=== PATIENT | male | born 1965 | race Caucasian/White ===

== ENCOUNTER 2018-08-21 01:36 | Emergency (ER) | payer BC, OTHER ==
[~2018-08-21] VITALS: Ht 175.3 cm; Wt 69.9 kg
[~2018-08-21 01:36] MED LIST: CLOP75TA PO
--- OUTSIDE RECORDS SUMMARY | 2018-08-21 01:42 | XMS REPORT ---
Author Author DOSS SHAYY Organization [facility] Address [address] [place] [address] Care Team Providers Care Commissioner Of Officials Name Role Phone SHAYY DOSS Unavailable PROBLEMS Type Condition ICD9-CM Code PMM13-LF Code Onset Dates Condition Status SNOMED Code Problem Elevated blood pressure I10 Active 61621123 Problem Establishing care with new doctor, encounter for Z71.89 Active 491055980 Problem [place] spotted fever A77.0 Active 058209796 Assessment Elevated blood pressure I10 Jan, Active 87105688 ALLERGIES Substance Reaction Event Type Date Status Naprosyn Unknown Drug Allergy Jan, Active Morphine Sulfate intolerance Drug Allergy Jan, Active SOCIAL HISTORY No smoking Hx information available PLAN OF CARE VITAL SIGNS Height 69 in 2016-01-30 Weight 154.6 lbs 2016-01-30 Heart Rate 72 bpm 2016-01-30 Respiratory Rate 20 2016-01-30 BMI 22.83 kg/m2 2016-01-30 Blood pressure systolic 136 mmHg 2016-01-30 Blood pressure diastolic 94 mmHg 2016-01-30 MEDICATIONS Medication Instructions Dosage Frequency Start Date End Date Duration Status Doxycycline Hyclate 100 MG Orally every 12 hrs 1 tablet 12h Jan, Jan, Active RESULTS Name Result Date Reference Range TSH 2016-01-30 TSH 1.180 0.450-4.500 CBC 2016-01-30 WBC 10.0 3.4-10.8 RBC 4.86 4.14-5.80 Hemoglobin 15.3 12.6-17.7 Hematocrit 42.6 37.5-51.0 MCV 88 79-97 MCH 31.5 26.6-33.0 MCHC 35.9 31.5-35.7 RDW 13.8 12.3-15.4 Platelets 224 150-379 Neutrophils 63 Lymphs 25 Monocytes 9 Eos 3 Basos 0 Neutrophils (Absolute) 6.2 1.4-7.0 Lymphs (Absolute) 2.6 0.7-3.1 Monocytes(Absolute) 0.9 0.1-0.9 Eos (Absolute) 0.3 0.0-0.4 Baso (Absolute) 0.0 0.0-0.2 Immature Granulocytes 0 Immature Grans (Abs) 0.0 0.0-0.1 LIPID PANEL 2016-01-30 Cholesterol, Total 194 100-199 Triglycerides 163 0-149 HDL Cholesterol 37 >39 VLDL Cholesterol Vamshi 33 5-40 LDL Cholesterol Calc 124 0-99 CMP 2016-01-30 Glucose, Serum 95 65-99 BUN 8 6-24 Creatinine, Serum 1.04 0.76-1.27 eGFR If NonAfricn Am 82 >59 eGFR If Africn Am 95 >59 BUN/Creatinine Ratio 8 9-20 Sodium, Serum 142 134-144 Potassium, Serum 3.9 3.5-5.2 Chloride, Serum 99 97-108 Carbon Dioxide, Total 22 18-29 Calcium, Serum 9.3 8.7-10.2 Protein, Total, Serum 7.5 6.0-8.5 Albumin, Serum 4.6 3.5-5.5 Globulin, Total 2.9 1.5-4.5 A/G Ratio 1.6 1.1-2.5 Bilirubin, Total 0.4 0.0-1.2 Alkaline Phosphatase, S 75 39-117 AST (SGOT) 17 0-40 ALT (SGPT) 16 0-44 PROCEDURES Procedure Date Ordered Related Diagnosis Body Site COMPLETE CBC W/AUTO DIFF WBC Jan 30, 2016 COMPREHEN METABOLIC PANEL Jan 30, 2016 ASSAY THYROID STIM HORMONE Jan 30, 2016 LIPID PANEL Jan 30, 2016 VENIPUNCT, ROUTINE* Jan 30, 2016 Office Visit, Est Pt., Level 4 Jan 30, 2016 IMMUNIZATIONS No Known Immunizations
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
--- OUTSIDE RECORDS SUMMARY | 2018-08-21 01:42 | XMS REPORT ---
Author Author ISMAEL CAMACHO Organization [employer] Address Unknown Phone Unavailable Care Team Providers Care Internal Combustion Engine Assembler Name Role Phone ISMAEL CAMACHO CP Unavailable Allergies, Adverse Reactions, Alerts Substance Reaction Event Type Naprosyn Info Not Available Drug Allergy Morphine Sulfate intolerance Drug Allergy Problems Problem Type Condition Code Onset Dates Condition Status Problem Establishing care with new doctor, encounter for Z71.89 Active Problem [place] spotted fever A77.0 Active Problem Elevated blood pressure I10 Active Assessment Acute non-recurrent maxillary sinusitis J01.00 Active Medications Medication Code System Code Instructions Start Date End Date Status Dosage Augmentin [facility] [address]-44 875-125 MG Orally every 12 hrs Feb 28, 2016 Mar 09, 2016 1 tablet Procedures Procedure Coding System Code Date Office Visit, Est Pt., Level 3 CPT-4 32377 Feb 28, 2016 Vital Signs Date/Time: Feb 28, 2016 Cardiac Monitoring Heart Rate 86 bpm Weight 156.6 lbs Height 69 in BMI 23.12 Index Blood Pressure Diastolic 80 mmHg Blood Pressure Systolic 122 mmHg Results No Known Results Summary Purpose [employer] Submission
--- OUTSIDE RECORDS SUMMARY | 2018-08-21 01:43 | XMS REPORT ---
Author Author ISMAEL CAMACHO Organization [facility] Address [address] [place] [address] Care Team Providers Care Pharmacy Clinical Specialist Name Role Phone ISMAEL CAMACHO Unavailable PROBLEMS Type Condition ICD9-CM Code VNC83-IE Code Onset Dates Condition Status SNOMED Code Problem Elevated blood pressure I10 Active 32710102 Problem Establishing care with new doctor, encounter for Z71.89 Active 485706674 Problem [place] spotted fever A77.0 Active 247339742 Assessment Blood in stool K92.1 Jan, Active 590846082 ALLERGIES No Known Allergies SOCIAL HISTORY No smoking Hx information available PLAN OF CARE VITAL SIGNS MEDICATIONS No Known Medications RESULTS Name Result Date Reference Range HEMOCCULT (IN HOUSE) 2016-01-24 RESULTS NEGATIVE Control + Lot # [id number] Exp date 04/2017 HEMOCCULT (IN HOUSE)-Additional 2016-01-24 RESULTS NEGATIVE Control + Lot # [id number] Exp Date 04/2017 PROCEDURES Procedure Date Ordered Related Diagnosis Body Site TEST FOR BLOOD, FECES Jan 24, 2016 IMMUNIZATIONS No Known Immunizations
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
[2018-08-21] MEDS ORDERED: diphenhydrAMINE 50 MG/ML INJ (BENADRYL) IV STA (02:02)
[2018-08-21] MEDS ORDERED: methylPREDNISolone 125 MG (Solu-MEDROL) VIAL IV STA (02:02)
[2018-08-21] MEDS ORDERED: MONT10TA24 (02:04)
[2018-08-21] MEDS ORDERED: FAMOTIDINE 20MG/2ML IV (PEPCID) IVP ONE (02:15)
[2018-08-21 02:23] LABS: BASOPHILS % (AUTO) 0 % (0-10); EOSINOPHILS # (AUTO) 0.4 10^3/uL (0.0-0.3); EOSINOPHILS % (AUTO) 4 % (0-10); HEMATOCRIT 41 % (40-54); HEMOGLOBIN 14.5 G/DL (13.3-17.7); LYMPHOCYTES # (AUTO) 3.7 X 10^3 (1.0-4.0); LYMPHOCYTES % (AUTO) 37 % (12-44); MEAN CORPUSCULAR HEMOGLOBIN 31 PG (25-34); MEAN CORPUSCULAR HGB CONC 35 G/DL (32-36); MEAN CORPUSCULAR VOLUME 89 FL (80-99); MEAN PLATELET VOLUME 8.8 FL (7.4-10.4); MONOCYTES # (AUTO) 1.5 X 10^3 (0.0-1.0); MONOCYTES % (AUTO) 15 % (0-12); NEUTROPHILS # (AUTO) 4.3 X 10^3 (1.8-7.8); NEUTROPHILS % (AUTO) 44 % (42-75); PLATELET COUNT 255 10^3/uL (130-400); RED CELL DISTRIBUTION WIDTH 13.3 % (10.0-14.5); WHITE BLOOD COUNT 9.9 10^3/uL (4.3-11.0)
--- NOTE | 2018-08-21 02:23 | ED General ---
General Chief Complaint: Allergic Reaction Stated Complaint: RASH ALL OVER Nursing Triage Note: generalized hives/itching. denies soa. Nursing Sepsis Screen: No Definite Risk Source of Information: Patient Exam Limitations: No Limitations History of Present Illness Date Seen by Provider: Aug 21, 2018 Time Seen by Provider: 02:00 Initial Comments PT ARRIVES VIA POV FROM HOME C/O GENERALIZED HIVES---VERY ITCHY NO SWELLING ANYWHERE NO DIFFICULTY BREATHING OR WHEEZING. PT SMOKES 2 PPD AND HAS A CHRONIC COUGH AND IS ALWAYS A LITTLE SHORT OF BREATH AND WHEEZES, BUT NOT FORMALLY DX WITH COPD, AND BREATHING IS NO DIFFERENT THAN NORMAL. SYMPTOMS BEGAN APPROXIMATELY 30 MINUTES AFTER TAKING A SINGULAIR--TOOK IT AROUND MIDNIGHT WAS STARTED ON SINGULAIR ON 08/06/18 FOR ONGOING ISSUES WITH SINUSES/ALLERGIES. STATES HE MISSED HIS DOSE LAST NIGHT, SO HE TOOK A DOSE THIS AM AT 0600 AND THEN THE DOSE AROUND MIDNIGHT. STATES AFTER THE RASH STARTED HE TOOK A HOT SHOWER AND IT MADE IT WORSE HAS NOT TAKEN ANYTHING FOR SYMPTOMS NO OTHER NEW MEDICATIONS, FOODS, PRODUCTS OR EXPOSURES STATES IT IS THE ONLY MEDICATION HE HAS TAKEN TONIGHT--ALSO WAS GIVEN RX FOR TRAZODONE FOR SLEEP, BUT HAS NOT TAKEN ANY OR EVEN OPENED THE BOTTLE/PACKAGE HAS ONLY HAD HIVES ONE OTHER TIME AND WAS WHEN HE WAS TEENS/EARLY 20'S AND WAS DUE TO STRESS. PCP: DR. PIKE Allergies and Home Medications Allergies Coded Allergies: bupropion (Verified Allergy, Unknown, 08/21/18) "PERSONALITY CHANGE" naproxen (Verified Allergy, Unknown, 08/21/18) "SEVERE DROWSINESS" Home Medications Clopidogrel Bisulfate 75 Mg Tablet, 1 EACH PO DAILY FOR CIRCULATION Prescribed by: RASHI KING on 01/29/09 1526 Prednisone 20 Mg Tab, 40 MG PO DAILY Prescribed by: RASHI KING on 08/21/18 0229 Patient Home Medication List Home Medication List Reviewed: Yes Review of Systems Review of Systems Constitutional: no symptoms reported EENTM: see HPI, nose congestion Respiratory: see HPI Cardiovascular: no symptoms reported Gastrointestinal: no symptoms reported Genitourinary: no symptoms reported Musculoskeletal: no symptoms reported Skin: see HPI, pruritus, rash Psychiatric/Neurological: No Symptoms Reported Hematologic/Lymphatic: No Symptoms Reported Immunological/Allergic: see HPI Past Chuvbhz-Dhiayh-Svxbbu Hx Patient Social History Alcohol Use: Denies Use Recreational Drug Use: No Smoking Status: Current Everyday Smoker (2 PPD) Type Used: Cigarettes (2 PPD) 2nd Hand Smoke Exposure: Yes Recent Foreign Travel: No Contact w/Someone Who Travel: No Recent Infectious Disease Expo: No Recent Hopitalizations: No Seasonal Allergies Seasonal Allergies: No Past Medical History Surgeries: Yes (RIGH THAND X 3--TENDON INJURY) Orthopedic Respiratory: Yes (SELF-DX OF COPD) COPD Cardiac: No Neurological: No Genitourinary: No Gastrointestinal: No Musculoskeletal: No Endocrine: No HEENT: No Cancer: No Psychosocial: No Integumentary: No Blood Disorders: No (RMSF X 2 ) Physical Exam Vital Signs Vital Signs - First Documented 08/21/18 01:57 Temp 97.7 Pulse 84 Resp 18 B/P (MAP) 121/93 (102) Pulse Ox 94 O2 Delivery Room Air Capillary Refill : Less Than 3 Seconds Height, Weight, BMI Height: 5'9.00" Weight: 154lbs. oz. 69.992728da; BMI Method:Stated General Appearance: No Apparent Distress, WD/WN, Other (REEKS OF CIGARETTES ) HEENT: PERRL/EOMI, Pharynx Normal, Moist Mucous Membranes, Other (NO SWELLING TO LIPS, TONGUE OR INTRA-ORALLY) Neck: Full Range of Motion, Normal Inspection, Non Tender, Supple Respiratory: Normal Breath Sounds, No Accessory Muscle Use, No Respiratory Distress Cardiovascular: Regular Rate, Rhythm, No Edema, No Murmur Gastrointestinal: Soft Extremity: Normal Capillary Refill, No Pedal Edema Neurologic/Psychiatric: Alert, Oriented x3, No Motor/Sensory Deficits, Normal Mood/Affect, manager neonatal II-XII Norm as Tested Skin: Normal Color, Warm/Dry Progress/Results/Core Measures Suspected Sepsis Recent Fever Within 48 Hours: No Infection Criteria Present: None New/Unexplained Altered Menta: No Sepsis Screen: No Definite Risk SIRS Temperature:97.7 Pulse: 84 Respiratory Rate: 18 Laboratory Tests 08/21/18 02:10: White Blood Count 9.9 Blood Pressure 121 /93 Mean: 102 Laboratory Tests 08/21/18 02:10: Creatinine 1.21, Platelet Count 255 Results/Orders Lab Results Laboratory Tests Test 08/21/18 02:10 Range/Units White Blood Count 9.9 4.3-11.0 10^3/uL Red Blood Count 4.64 4.35-5.85 10^6/uL Hemoglobin 14.5 13.3-17.7 G/DL Hematocrit 41 40-54 % Mean Corpuscular Volume 89 80-99 FL Mean Corpuscular Hemoglobin 31 25-34 PG Mean Corpuscular Hemoglobin Concent 35 32-36 G/DL Red Cell Distribution Width 13.3 10.0-14.5 % Platelet Count 255 130-400 10^3/uL Mean Platelet Volume 8.8 7.4-10.4 FL Neutrophils (%) (Auto) 44 42-75 % Lymphocytes (%) (Auto) 37 12-44 % Monocytes (%) (Auto) 15 H 0-12 % Eosinophils (%) (Auto) 4 0-10 % Basophils (%) (Auto) 0 0-10 % Neutrophils # (Auto) 4.3 1.8-7.8 X 10^3 Lymphocytes # (Auto) 3.7 1.0-4.0 X 10^3 Monocytes # (Auto) 1.5 H 0.0-1.0 X 10^3 Eosinophils # (Auto) 0.4 H 0.0-0.3 10^3/uL Basophils # (Auto) 0.0 0.0-0.1 10^3/uL Sodium Level 141 135-145 MMOL/L Potassium Level 3.8 3.6-5.0 MMOL/L Chloride Level 104 98-107 MMOL/L Carbon Dioxide Level 25 21-32 MMOL/L Anion Gap 12 5-14 MMOL/L Blood Urea Nitrogen 12 7-18 MG/DL Creatinine 1.21 0.60-1.30 MG/DL Estimat Glomerular Filtration Rate > 60 BUN/Creatinine Ratio 10 Glucose Level 91 70-105 MG/DL Calcium Level 9.6 8.5-10.1 MG/DL My Orders Orders - FERNANDO,RASHI K DO Saline Lock/Iv-Start (08/21/18 02:02) Basic Metabolic Panel (08/21/18 02:02) Cbc With Automated Diff (08/21/18 02:02) Diphenhydramine Injection (Benadryl Inje (08/21/18 02:02) Methylprednisolone Sod Succ (Solu-Medrol (08/21/18 02:02) Famotidine Injection (Pepcid Injection) (08/21/18 02:15) Medications Given in ED Current Medications Medications Dose Ordered Sig/German Route Start Time Stop Time Status Last Admin Dose Admin Famotidine 40 mg ONCE ONCE IVP 08/21/18 02:15 08/21/18 02:16 DC 08/21/18 02:13 40 MG Vital Signs/I&O 08/21/18 08/21/18 01:57 03:00 Temp 97.7 97.2 Pulse 84 72 Resp 18 16 B/P (MAP) 121/93 (102) 116/85 (95) Pulse Ox 94 95 O2 Delivery Room Air Room Air Capillary Refill : Less Than 3 Seconds Blood Pressure Mean: 102 Progress Note : Progress Note GIVEN IV BENADRYL, SOLU-MEDROL, PEPCID WITH RESOLUTION OF RASH AND ITCHING. Departure Impression Primary Impression: Urticaria Additional Impression: POSSIBLE ALLERGIC REACTION TO SINGULAIR Disposition: HOME, SELF-CARE Condition: Improved Departure-Patient Inst. Referrals: INDIRA PIKE MD (PCP/Family) Primary Care Physician Patient Instructions: Hives, Drug Allergy Add. Discharge Instructions: LOTS OF FLUIDS BENADRYL 50 MG EVERY 4 HOURS NEEDED FOR RASH AND ITCHING STOP SINGULAIR FOLLOW UP WITH YOUR DR ON THURSDAY FOR FURTHER CARE RETURN TO ER IF WORSE All discharge instructions reviewed with patient and/or family. Voiced understanding. Scripts Prednisone (Prednisone) 20 Mg Tab 40 MG PO DAILY, #6 TAB Prov: RASHI KING DO 08/21/18 RASHI KING DO Aug 21, 2018 02:23
[2018-08-21] MEDS ORDERED: PRD20T PO (02:29)
[2018-08-21 02:43] LABS: BUN/CREATININE RATIO 10; CALCIUM 9.6 MG/DL (8.5-10.1); CARBON DIOXIDE 25 MMOL/L (21-32); CHLORIDE 104 MMOL/L (98-107); CREATININE SERUM 1.21 MG/DL (0.60-1.30); GFR ESTIMATED > 60; GLUCOSE 91 MG/DL (70-105); POTASSIUM 3.8 MMOL/L (3.6-5.0); SODIUM 141 MMOL/L (135-145)
[2018-08-21 03:00] VITALS: BP 116/85
== END 2018-08-21 03:01 | disposition home or self-care (01) ==
LOC: EDUNIT# 01:36 → ER 01:39
DX: L50.9 Urticaria, unspecified (principal); J44.9 Chronic obstructive pulmonary disease, unspecified; F17.210 Nicotine dependence, cigarettes, uncomplicated; Z88.8 Allergy status to other drugs, medicaments and biological substances; Z79.52 Long term (current) use of systemic steroids; Z79.02 Long term (current) use of antithrombotics/antiplatelets
CPT/HCPCS: 36415; 80048; 85025; 96374; 96375

== ENCOUNTER 2019-01-14 16:50 | Emergency (ER) | payer BC ==
[~2019-01-14] VITALS: Ht 175.3 cm; Wt 70.3 kg
[~2019-01-14 16:50] MED LIST changes: +MONT10TA24; +PRD20T PO
--- NOTE | 2019-01-14 17:18 | ED Upper Extremity ---
General Chief Complaint: Upper Extremity Stated Complaint: L WRIST PAIN Nursing Triage Note: Patient ambulatory with spouse to FT2 with complaint of left wrist pain after a fall this morning around 10:00 AM. Patient states he was able to use the left arm after falling but the pain has increased this evening. 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 Nursing Sepsis Screen: No Definite Risk Source: patient Exam Limitations: no limitations History of Present Illness Date Seen by Provider: Jan 14, 2019 Time Seen by Provider: 17:16 Initial Comments To ER with reports of left wrist pain after a fall onto an outstretched arm this morning at 10 AM. He then put a brace on his wrist and proceeded to weedeat for about an hour before he noticed pain.. Has worsening pain now. Onset: just prior to arrival Severity: moderate Pain/Injury Location: left wrist Method of Injury: fell Modifying Factors: Worse With Movement Allergies and Home Medications Allergies Coded Allergies: bupropion (Verified Allergy, Unknown, 08/21/18) "PERSONALITY CHANGE" naproxen (Verified Allergy, Unknown, 08/21/18) "SEVERE DROWSINESS" Home Medications Clopidogrel Bisulfate 75 Mg Tablet, 1 EACH PO DAILY FOR CIRCULATION Prescribed by: RASHI KING on 01/29/09 1526 Prednisone 20 Mg Tab, 40 MG PO DAILY Prescribed by: RASHI KING on 08/21/18 0229 Patient Home Medication List Home Medication List Reviewed: Yes Review of Systems Constitutional: see HPI EENTM: see HPI Respiratory: no symptoms reported Cardiovascular: no symptoms reported Genitourinary: no symptoms reported Musculoskeletal: see HPI Skin: no symptoms reported Psychiatric/Neurological: No Symptoms Reported Past Bxfbwqv-Qrsvhf-Tqtmxa Hx Patient Social History Alcohol Use: Denies Use Recreational Drug Use: No Smoking Status: Current Everyday Smoker Type Used: Cigarettes 2nd Hand Smoke Exposure: Yes Recent Foreign Travel: No Contact w/Someone Who Travel: No Recent Infectious Disease Expo: No Recent Hopitalizations: No Physical Abuse: No Sexual Abuse: No Mistreated: No Fear: No Seasonal Allergies Seasonal Allergies: No Past Medical History Surgeries: Yes (RIGH HAND X 3--TENDON INJURY) Orthopedic Respiratory: Yes (SELF-DX OF COPD) COPD Cardiac: No Neurological: No Genitourinary: No Gastrointestinal: No Musculoskeletal: No Endocrine: No HEENT: No Cancer: No Psychosocial: No Integumentary: No Blood Disorders: No (RMSF X 2 ) Physical Exam Vital Signs Vital Signs - First Documented 01/14/19 17:00 Temp 97.8 Pulse 74 Resp 18 B/P (MAP) 133/94 (107) Pulse Ox 96 O2 Delivery Room Air Capillary Refill : Less Than 3 Seconds Height, Weight, BMI Height: 5'9.00" Weight: 155lbs. oz. 70.588229vd; BMI Method:Stated General Appearance: WD/WN, no apparent distress Respiratory: no respiratory distress, no accessory muscle use Gastrointestinal: normal bowel sounds, non tender Shoulder: normal inspection, non-tender Elbow/Forearm: normal inspection, non-tender, Left Wrist: Yes normal inspection, Yes limited ROM (he is wearing and appropriately fitting thumb spica from home), Yes pain, Yes soft tissue tenderness, Yes swelling Hand: normal inspection, non-tender Neurologic/Psychiatric: alert, normal mood/affect, oriented x 3 Skin: normal color, warm/dry He has no numbness of the fingertips, normal capillary refill. Progress/Results/Core Measures Results/Orders My Orders Orders - WILBUR FRANCO APRN Wrist, Left, 3 Views Or More (01/14/19 17:06) Vital Signs/I&O 01/14/19 17:00 Temp 97.8 Pulse 74 Resp 18 B/P (MAP) 133/94 (107) Pulse Ox 96 O2 Delivery Room Air Blood Pressure Mean: 107 Departure Communication (Admissions) Patient has a wrist splint, states that he doesn't fit well so I offered 1 hours. We tried this multiple different ways and he states that it feels even worse. There is some swelling to the wrist. Advised him there is no fracture, if persistent pain after week he should have a repeat x-ray or MRI. In the meantime he could use ibuprofen for pain. He replies "no, Im not taking that". He has Difficulty believing that there is no fracture Impression Primary Impression: Wrist sprain Qualified Codes: S63.502A - Unspecified sprain of left wrist, initial encou nter Disposition: 01 HOME, SELF-CARE Condition: Stable Departure-Patient Inst. Decision time for Depature: 17:53 Referrals: INDIRA PIKE MD (PCP/Family) Primary Care Physician Patient Instructions: Wrist Sprain (DC) Add. Discharge Instructions: 1. Go home and elevate the wrist as much as possible, wear the wrist splint at all times except when showering for the next week. If you have persistent pain. Follow-up with primary care to discuss obtaining an MRI to evaluate for an small fracture not seen on x-ray or ligamentous injury. Ibuprofen and Tylenol for pain control in the meantime. All discharge instructions reviewed with patient and/or family. Voiced understanding. WILBUR FRANCO APRN Jan 14, 2019 17:18
--- NOTE | 2019-01-14 17:35 | Diagnostic Imaging Report ---
INDICATION: Fall, left wrist pain. FINDINGS: Three views of the left wrist show no fracture, dislocation, or other abnormality. IMPRESSION: Normal left wrist. Dictated by: Dictated on workstation # [id number]
[2019-01-14 18:03] VITALS: BP 133/94
== END 2019-01-14 18:04 | disposition home or self-care (01) ==
LOC: EDUNIT# 16:50 → ER 16:51
DX: S63.502A Unspecified sprain of left wrist, initial encounter (principal); J44.9 Chronic obstructive pulmonary disease, unspecified; F17.210 Nicotine dependence, cigarettes, uncomplicated; Z88.8 Allergy status to other drugs, medicaments and biological substances; Z88.6 Allergy status to analgesic agent; Z79.52 Long term (current) use of systemic steroids; W19.XXXA Unspecified fall, initial encounter
CPT/HCPCS: 73110

== ENCOUNTER → 2019-01-31 | Outpatient (CLI) | payer BC ==
--- NOTE | 2019-01-31 12:47 | Diagnostic Imaging Report ---
INDICATION: Fall with continued left wrist pain. TIME OF EXAM: 11:29 AM FINDINGS: Three views left wrist were obtained. Distal radius and ulna are intact. There is a calcific density noted along the dorsum of the carpus on the lateral view, suggestive of a triquetral fracture. Remaining carpal bones are intact without evidence of fracture. Metacarpals are unremarkable. IMPRESSION: Findings suggestive of triquetral fracture. Dictated by: Dictated on workstation # [id number]
== END ==
LOC: RAD 11:10
PROVIDERS: ATTEND Pediatrics
DX: M25.532 Pain in left wrist (principal); W19.XXXA Unspecified fall, initial encounter
CPT/HCPCS: 73110

== ENCOUNTER → 2021-04-10 | Outpatient (CLI) | payer BC, OTHER ==
[~2021-04-10] MED LIST changes: +MONT-40; -MONT10TA24
[2021-04-10 14:21] VITALS: BP 134/91
--- NOTE | 2021-04-10 14:59 | Cardiology Stress Test Report ---
Stress Test Report Date of Procedure/Referring: Date of Procedure: Apr 10, 2021 PCP Bridget Wallace DO Admitting Physician Donal Dickerson MD Indications: CP Baseline Heart Rate: 79 Baseline Blood Pressure: Blood Pressure Systolic: 134 Blood Pressure Diastolic: 91 Baseline EKG: Baseline EKG: NSR Summary/Conclusion: Summary: In summary, the patient started exercising with a baseline heart rate, blood pressure and EKG mentioned above Patient was able to exercise for a total of 5 minutes on Rasheed protocol, METs 7 Maximum heart rate 129 Maximum blood pressure 190/92 Stress EKG, [address] depression in lead II, III and aVF, V4, V5. Recovery EKG , Return to baseline Conclusion: 1. Fair exercise tolerance for a total of 5 minutes on standard Rasheed protocol, seven METS achieving only 79% of maximal expected heart rate. Test was terminated due to leg cramps and claudication on exertion 2. Nondiagnostic EKG changes with exercise returned to baseline during recovery 3. No arrhythmia was noted 4. Hypertensive response to exercise with peak blood pressure 190/92 return to baseline during recovery 5. Significant leg cramps on exertion, patient was unable to exercise beyond 5 minutes suggestive of peripheral arterial disease and claudication. Recommendation: I recommend evaluating LESTER and considering Lexiscan Myoview stress test Copy Copies To 1: BRIDGET WALLACE BASHAR J MD Apr 10, 2021 14:59
== END ==
LOC: CARD 14:00
PROVIDERS: ATTEND Family Medicine
DX: R07.9 Chest pain, unspecified (principal)
CPT/HCPCS: 93017

== ENCOUNTER → 2021-04-10 | Outpatient (CLI) | payer OTHER ==
--- NOTE | 2021-04-10 14:08 | Diagnostic Imaging Report ---
INDICATION: DYSPNEA CHEST PAIN TOBACCO ABUSE COMPARISON: 01/29/2009 FINDINGS: Frontal and lateral views of the chest demonstrate normal heart size and pulmonary vascularity. The lungs are hyperinflated, but are otherwise clear. There are no signs of infiltrate, pleural effusions or pneumothoraces. The visualized osseous structures show no acute abnormalities. IMPRESSION: 1. No acute process. No signs of infiltrates, effusions or pneumothoraces. 2. Background COPD changes. Dictated by: Dictated on workstation # [id number]
== END ==
LOC: RAD 13:51
PROVIDERS: ATTEND Family Medicine
DX: J44.9 Chronic obstructive pulmonary disease, unspecified (principal); Z72.0 Tobacco use
CPT/HCPCS: 71046

== ENCOUNTER 2021-04-24 05:38 | Outpatient (RCR) | payer BC, OTHER ==
[~2021-04-24] VITALS: Ht 175.3 cm; Wt 70.3 kg
[~2021-04-24 05:38] MED LIST changes: +RT-ALBUINH IH
== END 2021-04-25 08:56 | disposition home or self-care (01) ==
LOC: PREOP 05:38
PROVIDERS: ATTEND Internal Medicine
DX: Z01.812 Encounter for preprocedural laboratory examination (principal); K62.5 Hemorrhage of anus and rectum; R10.11 Right upper quadrant pain; Z20.822 Contact with and (suspected) exposure to COVID-19
CPT/HCPCS: 87635

== ENCOUNTER 2021-04-26 07:34 | Day surgery (SDC) | payer BC, OTHER ==
--- NOTE | 2021-04-17 06:49 | HISTORY AND PHYSICAL ---
DATE OF SERVICE: HISTORY OF PRESENT ILLNESS: The patient is a 55-year-old white male referred by Dr. Wallace for diagnostic EGD and colonoscopy. He reports over the past several months, he has been having increased upper abdominal pain, predominantly epigastric and right upper quadrant, burning in sensation with a bloated feeling. He has had some intermittent bright red blood per rectum without pain and he denies constipation or change in bowel habit. He is concerned as his sister recently of pancreatic cancer at the age of 63 with no reported history of alcohol abuse. He is not aware of any other family history for GI cancers. I had performed colonoscopy on him for bright red blood per rectum in 2007, at which time he had a hyperplastic polyp removed from the ascending colon. He reports with sensation of abdominal distention he thinks he has put on 3 or 4 pounds over the past several months. 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 He also has some intermittent reflux symptoms. Denying dysphagia or melena for which he takes occasional omeprazole, but does not do so on a regular basis. He is on albuterol inhaler and takes no other medication [id number] otherwise. PAST SURGICAL HISTORY: He has had some hand surgery following an injury with no other reported past surgeries. 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 He had an 90-ssbi-ascx smoking history, still ongoing 2 packs per day. He reports no alcohol intake. FAMILY HISTORY: Other than a sister's pancreatic cancer, mother is living at the age of 89 with Alzheimer's dementia. Father of a ruptured aneurysm, do not know whether this is thoracic or abdominal at the age of 74. REVIEW OF SYSTEMS: CONSTITUTIONAL: The patient denies night sweats, chills or fever. PULMONARY: Stable dyspnea on exertion only. No dyspnea at rest, stable cough, no hemoptysis, minimal sputum. CARDIOVASCULAR: The patient denies palpitations, heart racing, orthopnea, PND, pedal edema or chest pain. GASTROINTESTINAL: As noted in the HPI. PHYSICAL EXAMINATION: GENERAL: Reveals a white male, appeared to be in no acute distress. VITAL SIGNS: Weight 155 pounds, blood pressure 130/80. HEENT: Unremarkable. Sclerae nonicteric. CHEST: Does reveal some diminished breath sounds posteriorly without wheezes, rales or rhonchi. Anterior chest is clear. CARDIOVASCULAR: Reveals a regular rate and rhythm without murmur, S3 or S4. ABDOMEN: Soft, supple some right upper quadrant pain to palpation as well as some mild epigastric discomfort to palpation without mass or organomegaly. Bowel sounds positive. No lower quadrant pain to palpation. EXTREMITIES: Reveal no cyanosis, clubbing or edema. ASSESSMENT AND PLAN: For further investigation of history of reflux with new onset abdominal distention with epigastric and right upper quadrant pain, will undergo a diagnostic EGD. For evaluation of bright red blood per rectum and also in need of screening, also meeting the criteria for routine screening will be performing colonoscopy as well. Prep instructions with the Suprep kit were given and questions were answered. I thank you for the referral of this pleasant gentleman. Job ID: [id number] DocumentID: [id number] Dictated Date: 04/04/2021 17:22:42 Vp [employer] Marketing [employer] Date: 04/04/2021 18:21:27 Dictated By: GERARDO OLIVER MD
[~2021-04-26] VITALS: Ht 175.3 cm; Wt 70.3 kg
--- OUTSIDE RECORDS SUMMARY | 2021-04-26 07:37 | XMS REPORT | CCD ---
Author Author Mina Wallace D.O. [facility] Organization BRIDGET WALLACE DO [facility] Address [address] [place] [address] Phone Care Team Providers Care Instrument Technician Name Role Phone PP Unavailable CCM Unavailable Summary Purpose Interface Exchange Insurance Providers Payer name Policy type / Coverage type Covered alliance party ID Effective Begin Date Effective End Date GPA Commercial Insurance [id number] Unknown Family History Family History data not found Social History Social History Element Codes Description Effective Dates Marital status Unknown 03/14/2020 Number of children Unknown 2 03/14/2020 Employment Unknown Currently employed Self 03/14/[address]: 57300184 Current every day smoker Number of years using tobacco Unknown 40 Number of cigarettes/day Unknown 40 (Two Packs) [address]: 627574 Currently drinks alcohol 03/14 Frequency of drinks SNOMED CT: 679057870 Drinks rarely 020 Has the patient ever used illegal drugs? Unknown In the past only 03/14/2020 Allergies, Adverse Reactions, Alerts Substance Reaction Codes Entered Date Inactivated Date Status * NO KNOWN ENVIRONMENTAL ALLERGIES Unknown 03/14/2020 N o Inactive Date Active _ Unknown 03/14/2020 No Inactive Date Active _ Unknown 03/14/2020 No Inactive Date Active Problems Condition Codes Effective Dates Condition Status Chest pain ICD-10: R07.9 ICD-9: 786.50 03/14/2020 Active Dyspnea ICD-10: R06.00 ICD-9: 786.09 03/14/2020 Active Erectile dysfunction ICD-10: N52.9 ICD-9: 607.84 03/14/2020 Active GERD (gastroesophageal reflux disease) ICD-10: K21.9 ICD-9: 530.81 05/22/2020 Active Tobacco abuse ICD-10: Z72.0 ICD-9: 305.1 03/14/2020 Active Encounter for general adult medical examination withou t abnormal findings ICD- 10: Z00.00 ICD-9: V70.9 03/16/2020 Active Thoracic back pain ICD-10: M54.6 ICD-9: 724.1 03/14/2020 Active Medications Medication Codes Instructions Start Date Stop Date Status Fill Instructions albuterol sulfate HFA 90 mcg/actuation aerosol inhaler RxNor m: 4073299 Take 2 Puff(s) Inhalation Q4H as needed 04/01/2021 No Stop Date Active sildenafil 100 mg tablet RxNorm: 817742 Take 1 Tablet(s) Oral Q D as needed 04/01/2021 No Stop Date Active omeprazole 40 mg capsule,delayed release RxNorm: 204090 1 Capsule(s) Oral QD for epigastric pain 05/22/2020 06/21/2020 Inactive Afrin (oxymetazoline) 0.05 % nasal mist RxNorm: 6837847 Nasal tw ice weekly 03/14/2020 No Stop Date Active cyclobenzaprine 5 mg tablet RxNorm: 376706 1 Tablet(s) Oral QD as needed for muscle spasm 03/14/2020 03/31/2021 Inactive Medication Administered No Medication Administered data Immunizations No Immunization data Results Observation Observation Code Item Item Code Result Date S [facility] Location GFR CALC 1593931 GFR Non Afr Amr >60 mL/min 03/16/2020 Un known GFR CALC [id number] GFR Afr Amr >60 mL/min 03/16/2020 Unknow n THYROID STIMULATING HORMONE 24189 TSH 1.280 uIU/mL 03/16/2020 Unknown COMPLETE BLOOD COUNT [id number] WBC 9.3 10e9/L 03/16/20 20 Unknown COMPLETE BLOOD COUNT 9394816 RBC 4.80 10e12/L 2019 Unknown COMPLETE BLOOD COUNT 3486149 HEMOGLOBIN 14.9 g/dL 03/16/20 20 Unknown COMPLETE BLOOD COUNT 2154662 HEMATOCRIT 43.6 % 03/16/20 20 Unknown COMPLETE BLOOD COUNT [id number] MCV 90.8 fL 0 Unknown COMPLETE BLOOD COUNT 3719808 MCH 31.0 pg 0 Unknown COMPLETE BLOOD COUNT 5158698 MCHC 34.2 g/dL 0 Unknown COMPLETE BLOOD COUNT 5086612 PLATELET COUNT 229 10e9/L Unknown COMPLETE BLOOD COUNT 0977437 Mean Plt Volume 9.1 fL Unknown COMPLETE BLOOD COUNT 0788238 Neut Auto 55.6 % 0 Unknown COMPLETE BLOOD COUNT [id number] Lymph Auto 26.9 % 03/16/20 20 Unknown COMPLETE BLOOD COUNT [id number] [place]e Auto 12.6 % 0 Unknown COMPLETE BLOOD COUNT 9266493 RDW 12.6 % 0 Unknown COMPLETE BLOOD COUNT 2882606 Eos Auto 4.5 % 0 Unknown COMPLETE BLOOD COUNT 8438279 Baso Auto 0.4 % 0 Unknown COMPLETE BLOOD COUNT 1534631 Neutrophil Abs 5.17 10e9/L Unknown COMPLETE BLOOD COUNT 5390874 Lymphocyte Abs 2.50 10e9/L Unknown COMPLETE BLOOD COUNT 7682136 Monocyte Abs 1.17 10e9/L 02/17 Unknown COMPLETE BLOOD COUNT 3113506 Eosinophil Abs 0.42 10e9/L Unknown COMPLETE BLOOD COUNT 8271273 RDW-SD 41.3 fL 0 Unknown COMPLETE BLOOD COUNT [id number] Basophil Abs 0.04 10e9/L 02/17 Unknown COMPREHENSIVE METABOLIC 48208 AST 22 U/L 2019 Unknown COMPREHENSIVE METABOLIC 34339 ALT 22 U/L 2019 Unknown COMPREHENSIVE METABOLIC 37018 BUN 10 mg/dL 2019 Unknown COMPREHENSIVE METABOLIC 75959 ALBUMIN 4.7 g/dL 2019 Unknown COMPREHENSIVE METABOLIC 81796 CHLORIDE 99 mmol/L 2019 Unknown COMPREHENSIVE METABOLIC 17421 Bili Total 0.4 mg/dL 03/16 Unknown COMPREHENSIVE METABOLIC 78462 ALK PHOS 78 U/L 2019 Unknown COMPREHENSIVE METABOLIC 21173 SODIUM 139 mmol/L 03/16 Unknown COMPREHENSIVE METABOLIC 44393 CREATININE 1.11 mg/dL 02/17 Unknown COMPREHENSIVE METABOLIC 40648 CALCIUM 9.3 mg/dL 2019 Unknown COMPREHENSIVE METABOLIC 55936 POTASSIUM 4.3 mmol/L 03/16 Unknown COMPREHENSIVE METABOLIC 57003 Total Protein 7.6 g/dL Unknown COMPREHENSIVE METABOLIC 71627 Glucose 81 mg/dL 2019 Unknown COMPREHENSIVE METABOLIC 29663 Bicarbonate 30 mmol/L 02/17 Unknown COMPREHENSIVE METABOLIC 21284 AGAP 10 mmol/L 2019 Unknown FREE T4 74416 T4 Free 0.99 ng/dL 03/16/2020 Unknown LIPID GROUP 00869 Cholesterol 175 mg/dL 03/16/2020 Unkno wn LIPID GROUP 68765 Triglyceride 128 mg/dL 03/16/2020 Unkn own LIPID GROUP 78123 HDL CHOLESTEROL 41 mg/dL 03/16/2020 U nknown LIPID GROUP 43651 Chol/HDL Ratio 4.27 ratio 03/16/2020 U nknown LIPID GROUP 22582 NON-HDL Chol 134 mg/dL 03/16/2020 Unkn own LIPID GROUP 36768 LDL Cholesterol 108 mg/dL 03/16/2020 U nknown PSA EQUIMOLAR PORSHA 70227 PSA Total 0.52 ng/mL 0 Unknown Procedures Procedure Codes Date ROUTINE VENIPUNCTURE CPT-4: 50525 03/16/2020 ASSAY OF FREE THYROXINE CPT-4: 15343 03/16/2020 ASSAY THYROID STIM HORMONE CPT-4: 22898 03/16/2020 COMPREHEN METABOLIC PANEL CPT-4: 00867 03/16/2020 COMPLETE CBC W/AUTO DIFF WBC CPT-4: 84824 03/16/2020 LIPID PANEL CPT-4: 59106 03/16/2020 ASSAY OF PSA TOTAL CPT-4: 93316 03/16/2020 Vital Signs Date Vital 04/01/2021 Blood Pressure 1: 140/84 Code: 8480-6 Heart Rate 1: 76 bpm Respiratory Rate: 20 bpm SpO2: 96% Temperature: 36.6 (C) / 97.8 (F) We ight: 154 lbs Code: 45457-7 03/14/2020 Blood Pressure 1: 120/78 Code: 8480-6 BMI: 22.2 Code: 67750-8 Heart Rate 1: 72 bpm Height: 5'9" Code: 8302-2 Respiratory Rate: 20 bpm SpO2: 100% Temperature: 36.2 (C) / 97.1 (F) Weight: 150 lbs Code: 61752-4 Functional Status No Functional Status data Reason For Visit Reason For Visit Effective Dates Notes dyspnea 04/01/2021 cough 05/22/2020 Patient tested negat genevieve for COVID last week by oral sample ~generic 03/14/2020 New Patient---establ ishing visit Encounters Encounter Performer Location Codes Date (69488) OFFICE/OUTPATIENT VISIT EST Diagnosis: Chest pain[ICD10: R07.9] Diagnosis: Dyspnea[ICD10: R06.00] Diagnosis: Tobacco abuse[ICD10: Z72.0] Diagnosis: GERD (gastroesophageal reflux disease)[ICD10: K21.9] Diagnosis: Erectile dysfunction[ICD10: N52.9] Bridget GENAO [employer] CPT-4: 76821 04/01/2021 ([id number]) OFFICE/OUTPATIENT VISIT EST Diagnosis: Chest pain[ICD10: R07.9] Diagnosis: GERD (gastroesophageal reflux disease)[ICD10: K21.9] Bridget GILL [employer] CPT-4: 97395 05/22/2020 ([id number]) NURSE/OUTPATIENT VISIT EST Diagnosis: Male erectile dysfunction[ICD10: N52.9] Diagnosis: Encounter for general adult medical examination without abnormal findings[ICD10: Z00.00] Bridget ROUSSEAUQUELINE [employer] CPT-4: 25282 03/16/2020 ([id number]) OFFICE/OUTPATIENT VISIT NEW Diagnosis: Chest pain[ICD10: R07.9] Diagnosis: Thoracic back pain[ICD10: M54.6] Diagnosis: Tobacco abuse[ICD10: Z72.0] Diagnosis: Dyspnea[ICD10: R06.00] Diagnosis: Male erectile dysfunction[ICD10: N52.9] Bridget Nathanielseema SOHAM LUQUEJUAN M [employer] CPT-4: 90524 03/14/2020 Plan of Care Planned Activity Notes Codes Status Date Visit Diagnosis Plan: Erectile dysfunction Discussion: Viagra trial ICD-9 : 607.84 ICD-10 : N52.9 04/01/2021 Visit Diagnosis Plan: Tobacco abuse Discussion: Smokin g cessation ICD-9 : 305.1 ICD-10 : Z72.0 04/01/2021 Visit Diagnosis Plan: Dyspnea Discussion: Likely COPD Will start albuterol at least TID Needs PFT Check CXR ICD-9 : 786.09 ICD-10 : R06.00 04/01/2021 Visit Diagnosis Plan: Chest pain Discussion: Never got stress done done that was ordered in May--states never heard from them--discussed that hospital does all their own scheduling and will call him so needs to answer phone Update fasting lab ICD-9 : 786.50 ICD-10 : R07.9 04/01/2021 Visit Diagnosis Plan: GERD (gastroesophageal reflux di sease) Discussion: Needs updated colonoscopy so will do EGD as well due to upper abdominal burning and bloating ICD-9 : 530.81 ICD-10 : K21.9 04/01/2021 Care Plan: Referral Order SNOMED-CT : [id number] Pending 04/01/2021 Visit Diagnosis Plan: Chest pain Discussion: Telephone visit completed CXR and stress test as ordered back in February To ER if worsening CP with associated SOA, diaphoresis, nausea, etc. Discussion: CXR and stress test ICD-9 : 786.50 ICD-10 : R07.9 05/22/2020 Visit Diagnosis Plan: GERD (gastroesophageal reflux di sease) Discussion: Omeprazole 40mg daily to cover for GI etiology Discussion: Omeprazole 40mg daily ICD-9 : 530.81 ICD-10 : K21.9 05/22/2020 [facility] [phone] [facility] [facility] 05/22/2020 Patient Education: omeprazole- [employer] Coupon [phone] [email or web address] Completed 05/22/2020 Appointment: [facility] [phone] [facility] [facility] 03/16/2020 Visit Diagnosis Plan: Thoracic back pain Discussion: D aily stretches Moist heat Topical muscle rub Flexeril to use prn prior to chiropractic appointment ICD-9 : 724.1 ICD-10 : M54.6 03/14/2020 Visit Diagnosis Plan: Male erectile dysfunction Discus evan: Will start with testosterone level ICD-9 : 607.84 ICD-10 : N52.9 03/14/2020 Visit Diagnosis Plan: Dyspnea Discussion: Start with C XR May need PFT ICD-9 : 786.09 ICD-10 : R06.00 03/14/2020 Visit Diagnosis Plan: Tobacco abuse Discussion: Smokin g Cessation ICD-9 : 305.1 ICD-10 : Z72.0 03/14/2020 Visit Diagnosis Plan: Chest pain Discussion: Start wit h Exercise Stress Test Will return for fasting lab--CMP, LIpids, CBC, PSA, TSH, testosterone ICD-9 : 786.50 ICD-10 : R07.9 03/14/2020 Appointment: Bridget Wallace WPtel: [address] [place] [address] NEW PATIENT 03/14/2020 Patient Education: cyclobenzaprine- [employer] Coupon [id number] [email or web address] Completed 03/14/2020 Referral: Johnny Ramos WPtel: [phone] [facility] [address] [place] [address] Referral Appointment Requested Instructions No Instructions Medical Equipment No Medical Equipment data Health Concerns Section Health Concerns data not found Goals Section Goals data not found Interventions Section Interventions data not found Health Status Evaluations/Outcomes Section Health Status Evaluations/Outcomes data not found Advance Directives No Advance Directive data
--- OUTSIDE RECORDS SUMMARY | 2021-04-26 07:37 | XMS REPORT | CCD ---
Author Author Mina Wallace D.O. [facility] Organization [facility] Address [address] [place] [address] Phone Care Team Providers Care Probate Paralegal Name Role Phone PP Unavailable CCM Unavailable Summary Purpose Interface Exchange Insurance Providers Payer name Policy type / Coverage type Covered constitution party ID Effective Begin Date Effective End Date GPA Commercial Insurance [id number] Unknown Family History Family History data not found Social History Social History Element Codes Description Effective Dates Marital status Unknown 03/14/2020 Number of children Unknown 2 03/14/2020 Employment Unknown Currently employed Self 03/14/[address]: 50217431 Current every day smoker Number of years using tobacco Unknown 40 Number of cigarettes/day Unknown 40 (Two Packs) [address]: 227613 Currently drinks alcohol 03/14 Frequency of drinks SNOMED CT: 026590299 Drinks rarely 020 Has the patient ever [...] HFA 90 mcg/actuation aerosol inhaler RxNor m: 9083576 Take 2 Puff(s) Inhalation Q4H as needed 04/01/2021 No Stop Date Active sildenafil 100 mg tablet RxNorm: 611212 Take 1 Tablet(s) Oral Q D as needed 04/01/2021 No Stop Date Active omeprazole 40 mg capsule,delayed release RxNorm: 323476 1 Capsule(s) Oral QD for epigastric pain 05/22/2020 06/21/2020 Inactive Afrin (oxymetazoline) 0.05 % nasal mist RxNorm: 2813552 Nasal tw ice weekly 03/14/2020 No Stop Date Active cyclobenzaprine 5 mg tablet RxNorm: 526990 1 Tablet(s) Oral QD as needed for muscle spasm 03/14/2020 03/31/2021 Inactive Medication Administered No Medication Administered data Immunizations No Immunization data Results Observation Observation Code Item Item Code Result Date S [facility] Location GFR CALC [id number] GFR Non Afr Amr >60 mL/min 03/16/2020 Un known GFR CALC [id number] GFR Afr Amr >60 mL/min 03/16/2020 Unknow n THYROID STIMULATING HORMONE 19115 TSH 1.280 uIU/mL 03/16/2020 Unknown COMPLETE BLOOD COUNT 0070866 WBC 9.3 10e9/L 03/16/20 20 Unknown COMPLETE BLOOD COUNT [id number] RBC 4.80 10e12/L 2019 Unknown COMPLETE BLOOD COUNT 3806858 HEMOGLOBIN 14.9 g/dL 03/16/20 20 Unknown COMPLETE BLOOD COUNT [id number] HEMATOCRIT 43.6 % 03/16/20 20 Unknown COMPLETE BLOOD COUNT [id number] MCV 90.8 fL 0 Unknown COMPLETE BLOOD COUNT 3486546 MCH 31.0 pg 0 Unknown COMPLETE BLOOD COUNT 1180653 MCHC 34.2 g/dL 0 Unknown COMPLETE BLOOD COUNT 7965949 PLATELET COUNT 229 10e9/L Unknown COMPLETE BLOOD COUNT 4084250 Mean Plt Volume 9.1 fL Unknown COMPLETE BLOOD COUNT 3364367 Neut Auto 55.6 % 0 Unknown COMPLETE BLOOD COUNT 0599035 Lymph Auto 26.9 % 03/16/20 20 Unknown COMPLETE BLOOD COUNT 8957142 Amelia Auto 12.6 % 0 Unknown COMPLETE BLOOD COUNT 8209703 RDW 12.6 % 0 Unknown COMPLETE BLOOD COUNT 6990587 Eos Auto 4.5 % 0 Unknown COMPLETE BLOOD COUNT 8273880 Baso Auto 0.4 % 0 Unknown COMPLETE BLOOD COUNT 5302382 Neutrophil Abs 5.17 10e9/L Unknown COMPLETE BLOOD COUNT 3651821 Lymphocyte Abs 2.50 10e9/L Unknown COMPLETE BLOOD COUNT 9537762 Monocyte Abs 1.17 10e9/L 02/17 Unknown COMPLETE BLOOD COUNT 6778063 Eosinophil Abs 0.42 10e9/L Unknown COMPLETE BLOOD COUNT 1692109 RDW-SD 41.3 fL 0 Unknown COMPLETE BLOOD COUNT 8287295 Basophil Abs 0.04 10e9/L 02/17 Unknown COMPREHENSIVE METABOLIC 83157 AST 22 U/L 2019 Unknown COMPREHENSIVE METABOLIC 71435 ALT 22 U/L 2019 Unknown COMPREHENSIVE METABOLIC 92664 BUN 10 mg/dL 2019 Unknown COMPREHENSIVE METABOLIC 96316 ALBUMIN 4.7 g/dL 2019 Unknown COMPREHENSIVE METABOLIC 51638 CHLORIDE 99 mmol/L 2019 Unknown COMPREHENSIVE METABOLIC 13538 Bili Total 0.4 mg/dL 03/16 Unknown COMPREHENSIVE METABOLIC 26048 ALK PHOS 78 U/L 2019 Unknown COMPREHENSIVE METABOLIC 23803 SODIUM 139 mmol/L 03/16 Unknown COMPREHENSIVE METABOLIC 95383 CREATININE 1.11 mg/dL 02/17 Unknown COMPREHENSIVE METABOLIC 21513 CALCIUM 9.3 mg/dL 2019 Unknown COMPREHENSIVE METABOLIC 51672 POTASSIUM 4.3 mmol/L 03/16 Unknown COMPREHENSIVE METABOLIC 19997 Total Protein 7.6 g/dL Unknown COMPREHENSIVE METABOLIC 57317 Glucose 81 mg/dL 2019 Unknown COMPREHENSIVE METABOLIC 25445 Bicarbonate 30 mmol/L 02/17 Unknown COMPREHENSIVE METABOLIC 76828 AGAP 10 mmol/L 2019 Unknown FREE T4 97937 T4 Free 0.99 ng/dL 03/16/2020 Unknown LIPID GROUP 66061 Cholesterol 175 mg/dL 03/16/2020 Unkno wn LIPID GROUP 11838 Triglyceride 128 mg/dL 03/16/2020 Unkn own LIPID GROUP 64429 HDL CHOLESTEROL 41 mg/dL 03/16/2020 U nknown LIPID GROUP 49696 Chol/HDL Ratio 4.27 ratio 03/16/2020 U nknown LIPID GROUP 95339 NON-HDL Chol 134 mg/dL 03/16/2020 Unkn own LIPID GROUP 79758 LDL Cholesterol 108 mg/dL 03/16/2020 U nknown PSA EQUIMOLAR PORSHA 53516 PSA Total 0.52 ng/mL 0 Unknown Procedures Procedure Codes Date ROUTINE VENIPUNCTURE CPT-4: 85260 03/16/2020 ASSAY OF FREE THYROXINE CPT-4: 52671 03/16/2020 ASSAY THYROID STIM HORMONE CPT-4: 16391 03/16/2020 COMPREHEN METABOLIC PANEL CPT-4: 78836 03/16/2020 COMPLETE CBC W/AUTO DIFF WBC CPT-4: 31256 03/16/2020 LIPID PANEL CPT-4: 32151 03/16/2020 ASSAY OF PSA TOTAL CPT-4: 10855 03/16/2020 Vital Signs Date Vital 04/01/2021 Blood Pressure 1: 140/84 Code: 8480-6 Heart Rate 1: 76 bpm Respiratory Rate: 20 bpm SpO2: 96% Temperature: 36.6 (C) / 97.8 (F) We ight: 154 lbs Code: 93281-9 03/14/2020 Blood Pressure 1: 120/78 Code: 8480-6 BMI: 22.2 Code: 54454-4 Heart Rate 1: 72 bpm Height: 5'9" Code: 8302-2 Respiratory Rate: 20 bpm SpO2: 100% Temperature: 36.2 (C) / 97.1 (F) Weight: 150 lbs Code: 81746-3 Functional Status No Functional Status data Reason For Visit Reason For Visit Effective Dates Notes dyspnea 04/01/2021 cough 05/22/2020 Patient tested negat genevieve for COVID last week by oral sample ~generic 03/14/2020 New Patient---establ ishing visit Encounters Encounter Performer Location Codes Date (11395) OFFICE/OUTPATIENT VISIT EST Diagnosis: Chest pain[ICD10: R07.9] Diagnosis: Dyspnea[ICD10: R06.00] Diagnosis: Tobacco abuse[ICD10: Z72.0] Diagnosis: GERD (gastroesophageal reflux disease)[ICD10: K21.9] Diagnosis: Erectile dysfunction[ICD10: N52.9] Bridget GENAO Roula[employer]ero DUGLAS [employer] CPT-4: 17958 04/01/2021 ([id number]) OFFICE/OUTPATIENT VISIT EST Diagnosis: Chest pain[ICD10: R07.9] Diagnosis: GERD (gastroesophageal reflux disease)[ICD10: K21.9] Bridget GILL [employer] DUGLAS [employer] CPT-4: 60605 05/22/2020 ([id number]) NURSE/OUTPATIENT VISIT EST Diagnosis: Male erectile dysfunction[ICD10: N52.9] Diagnosis: Encounter for general adult medical examination without abnormal findings[ICD10: Z00.00] Bridget ROUSSEAUQUELINE [employer] CPT-4: 98274 03/16/2020 ([id number]) OFFICE/OUTPATIENT VISIT NEW Diagnosis: Chest pain[ICD10: R07.9] Diagnosis: Thoracic back pain[ICD10: M54.6] Diagnosis: Tobacco abuse[ICD10: Z72.0] Diagnosis: Dyspnea[ICD10: R06.00] Diagnosis: Male erectile dysfunction[ICD10: N52.9] Bridget Nathanielseema SOHAM LUQUEJUAN M [employer] [facility]GL[facility] [employer] CPT-4: 30390 03/14/2020 Plan of Care Planned Activity Notes [...] Care Plan: Referral Order SNOMED-CT : 30 [id number] Pending 04/01/2021 Visit Diagnosis Plan: Chest pain [...] K21.9 05/22/2020 [facility] [phone] [facility] [facility] 05/22/2020 Patient Education: omeprazole- OptimizeRX Coupon [id number] [email or web address]/resources/getResource/[email or web address] Completed 05/22/2020 Appointment: Bridget Wallace [facility]el[facility] [phone] [facility] [facility] 03/16/2020 Visit Diagnosis Plan: Thoracic [...] : R07.9 03/14/2020 Appointment: Bridget Wallace WPtel: [address] [place] [address] NEW PATIENT 03/14/2020 Patient Education: cyclobenzaprine- OptimizeRX Coupon [id number] [email or web address]://[email or web address]/[email or web address]/resources/getResource/61/[email or web address] Completed 03/14/2020 Referral: Johnny Ramos WPtel: [phone] [facility] [address] [place] [address] Referral Appointment Requested Instructions No Instructions Medical Equipment No Medical Equipment data Health Concerns Section Health Concerns data not found Goals Section Goals data not found Interventions Section Interventions data not found Health Status Evaluations/Outcomes Section Health Status Evaluations/Outcomes data not found Advance Directives No Advance Directive data
--- OUTSIDE RECORDS SUMMARY | 2021-04-26 07:37 | XMS REPORT | CCD ---
Author Author Mina Wallace D.O. [facility] Organization [facility] Address [address] [place] [address] Phone Care Team Providers Care Concrete Rod Buster Name Role Phone PP Unavailable CCM Unavailable Summary Purpose Interface Exchange Insurance Providers Payer name Policy type / Coverage type Covered republican ID Effective Begin Date Effective End Date GPA Commercial Insurance [id number] Unknown Family History Family History data not found Social History Social History Element Codes Description Effective Dates Marital status Unknown 03/14/2020 Number of children Unknown 2 03/14/2020 Employment Unknown Currently employed Self 03/14/[address]: 47589988 Current every day smoker Number of years using tobacco Unknown 40 Number of cigarettes/day Unknown 40 (Two Packs) [address]: 288271 Currently drinks alcohol 03/14 Frequency of drinks SNOMED CT: 196761306 Drinks rarely 020 Has the patient ever [...] HFA 90 mcg/actuation aerosol inhaler RxNor m: 6538077 Take 2 Puff(s) Inhalation Q4H as needed 04/01/2021 No Stop Date Active sildenafil 100 mg tablet RxNorm: 233562 Take 1 Tablet(s) Oral Q D as needed 04/01/2021 No Stop Date Active omeprazole 40 mg capsule,delayed release RxNorm: 251493 1 Capsule(s) Oral QD for epigastric pain 05/22/2020 06/21/2020 Inactive Afrin (oxymetazoline) 0.05 % nasal mist RxNorm: 1060814 Nasal tw ice weekly 03/14/2020 No Stop Date Active cyclobenzaprine 5 mg tablet RxNorm: 580082 1 Tablet(s) Oral QD as needed for muscle spasm 03/14/2020 03/31/2021 Inactive Medication Administered No Medication Administered data Immunizations No Immunization data Results Observation Observation Code Item Item Code Result Date S [facility] Location GFR CALC [id number] GFR Non Afr Amr >60 mL/min 03/16/2020 Un known GFR CALC 2111380 GFR Afr Amr >60 mL/min 03/16/2020 Unknow n THYROID STIMULATING HORMONE 50868 TSH 1.280 uIU/mL 03/16/2020 Unknown COMPLETE BLOOD COUNT 8802278 WBC 9.3 10e9/L 03/16/20 20 Unknown COMPLETE BLOOD COUNT 1467673 RBC 4.80 10e12/L 2019 Unknown COMPLETE BLOOD COUNT 1187482 HEMOGLOBIN 14.9 g/dL 03/16/20 20 Unknown COMPLETE BLOOD COUNT 3515000 HEMATOCRIT 43.6 % 03/16/20 20 Unknown COMPLETE BLOOD COUNT 5440713 MCV 90.8 fL 0 Unknown COMPLETE BLOOD COUNT 3786813 MCH 31.0 pg 0 Unknown COMPLETE BLOOD COUNT 3011886 MCHC 34.2 g/dL 0 Unknown COMPLETE BLOOD COUNT 0698393 PLATELET COUNT 229 10e9/L Unknown COMPLETE BLOOD COUNT 5474402 Mean Plt Volume 9.1 fL Unknown COMPLETE BLOOD COUNT 2021685 Neut Auto 55.6 % 0 Unknown COMPLETE BLOOD COUNT 4672401 Lymph Auto 26.9 % 03/16/20 20 Unknown COMPLETE BLOOD COUNT 2812430 Morrill Auto 12.6 % 0 Unknown COMPLETE BLOOD COUNT 7578966 RDW 12.6 % 0 Unknown COMPLETE BLOOD COUNT 0829396 Eos Auto 4.5 % 0 Unknown COMPLETE BLOOD COUNT 2139311 Baso Auto 0.4 % 0 Unknown COMPLETE BLOOD COUNT 9145904 Neutrophil Abs 5.17 10e9/L Unknown COMPLETE BLOOD COUNT 9541288 Lymphocyte Abs 2.50 10e9/L Unknown COMPLETE BLOOD COUNT 7052869 Monocyte Abs 1.17 10e9/L 02/17 Unknown COMPLETE BLOOD COUNT 1803613 Eosinophil Abs 0.42 10e9/L Unknown COMPLETE BLOOD COUNT 1116001 RDW-SD 41.3 fL 0 Unknown COMPLETE BLOOD COUNT 5567602 Basophil Abs 0.04 10e9/L 02/17 Unknown COMPREHENSIVE METABOLIC 61192 AST 22 U/L 2019 Unknown COMPREHENSIVE METABOLIC 69693 ALT 22 U/L 2019 Unknown COMPREHENSIVE METABOLIC 02095 BUN 10 mg/dL 2019 Unknown COMPREHENSIVE METABOLIC 87444 ALBUMIN 4.7 g/dL 2019 Unknown COMPREHENSIVE METABOLIC 24720 CHLORIDE 99 mmol/L 2019 Unknown COMPREHENSIVE METABOLIC 49948 Bili Total 0.4 mg/dL 03/16 Unknown COMPREHENSIVE METABOLIC 17683 ALK PHOS 78 U/L 2019 Unknown COMPREHENSIVE METABOLIC 91860 SODIUM 139 mmol/L 03/16 Unknown COMPREHENSIVE METABOLIC 94496 CREATININE 1.11 mg/dL 02/17 Unknown COMPREHENSIVE METABOLIC 91955 CALCIUM 9.3 mg/dL 2019 Unknown COMPREHENSIVE METABOLIC 86701 POTASSIUM 4.3 mmol/L 03/16 Unknown COMPREHENSIVE METABOLIC 08014 Total Protein 7.6 g/dL Unknown COMPREHENSIVE METABOLIC 41581 Glucose 81 mg/dL 2019 Unknown COMPREHENSIVE METABOLIC 67195 Bicarbonate 30 mmol/L 02/17 Unknown COMPREHENSIVE METABOLIC 62685 AGAP 10 mmol/L 2019 Unknown FREE T4 03038 T4 Free 0.99 ng/dL 03/16/2020 Unknown LIPID GROUP 96000 Cholesterol 175 mg/dL 03/16/2020 Unkno wn LIPID GROUP 22767 Triglyceride 128 mg/dL 03/16/2020 Unkn own LIPID GROUP 51762 HDL CHOLESTEROL 41 mg/dL 03/16/2020 U nknown LIPID GROUP 80922 Chol/HDL Ratio 4.27 ratio 03/16/2020 U nknown LIPID GROUP 95363 NON-HDL Chol 134 mg/dL 03/16/2020 Unkn own LIPID GROUP 16248 LDL Cholesterol 108 mg/dL 03/16/2020 U nknown PSA EQUIMOLAR PORSHA 48336 PSA Total 0.52 ng/mL 0 Unknown Procedures Procedure Codes Date ROUTINE VENIPUNCTURE CPT-4: 64258 03/16/2020 ASSAY OF FREE THYROXINE CPT-4: 42411 03/16/2020 ASSAY THYROID STIM HORMONE CPT-4: 44212 03/16/2020 COMPREHEN METABOLIC PANEL CPT-4: 02008 03/16/2020 COMPLETE CBC W/AUTO DIFF WBC CPT-4: 79358 03/16/2020 LIPID PANEL CPT-4: 50549 03/16/2020 ASSAY OF PSA TOTAL CPT-4: 74290 03/16/2020 Vital Signs Date Vital 04/01/2021 Blood Pressure 1: 140/84 Code: 8480-6 Heart Rate 1: 76 bpm Respiratory Rate: 20 bpm SpO2: 96% Temperature: 36.6 (C) / 97.8 (F) We ight: 154 lbs Code: 89885-0 03/14/2020 Blood Pressure 1: 120/78 Code: 8480-6 BMI: 22.2 Code: 74454-3 Heart Rate 1: 72 bpm Height: 5'9" Code: 8302-2 Respiratory Rate: 20 bpm SpO2: 100% Temperature: 36.2 (C) / 97.1 (F) Weight: 150 lbs Code: 09938-2 Functional Status No Functional Status data Reason For Visit Reason For Visit Effective Dates Notes dyspnea 04/01/2021 cough 05/22/2020 Patient tested negat genevieve for COVID last week by oral sample ~generic 03/14/2020 New Patient---establ ishing visit Encounters Encounter Performer Location Codes Date (08712) OFFICE/OUTPATIENT VISIT EST Diagnosis: Chest pain[ICD10: R07.9] Diagnosis: Dyspnea[ICD10: R06.00] Diagnosis: Tobacco abuse[ICD10: Z72.0] Diagnosis: GERD (gastroesophageal reflux disease)[ICD10: K21.9] Diagnosis: Erectile dysfunction[ICD10: N52.9] Bridget GENAO Roula[employer]ero DUGLAS [employer] CPT-4: 69614 04/01/2021 ([id number]) OFFICE/OUTPATIENT VISIT EST Diagnosis: Chest pain[ICD10: R07.9] Diagnosis: GERD (gastroesophageal reflux disease)[ICD10: K21.9] Bridget GILL [employer] DUGLAS [employer] [facility] CPT-4: 96896 05/22/2020 ([id number]) NURSE/OUTPATIENT VISIT EST Diagnosis: Male erectile dysfunction[ICD10: N52.9] Diagnosis: Encounter for general adult medical examination without abnormal findings[ICD10: Z00.00] Bridget ROUSSEAUQUELINE [employer] CPT-4: 53143 03/16/2020 ([id number]) OFFICE/OUTPATIENT VISIT NEW Diagnosis: Chest pain[ICD10: R07.9] Diagnosis: Thoracic back pain[ICD10: M54.6] Diagnosis: Tobacco abuse[ICD10: Z72.0] Diagnosis: Dyspnea[ICD10: R06.00] Diagnosis: Male erectile dysfunction[ICD10: N52.9] Bridget Nathanielseema SOHAM LUQUEJUAN M [employer] [facility] CPT-4: 19660 03/14/2020 Plan of Care Planned Activity Notes [...] Care Plan: Referral Order SNOMED-CT : 30 [id number] Pending 04/01/2021 Visit Diagnosis Plan: Chest pain [...] K21.9 05/22/2020 Appointment: Bridget Wallace [facility]el[facility] [phone] [facility] [facility] 05/22/2020 Patient Education: omeprazole- OptimizeRX Coupon [id number] [email or web address]/resources/getResource/[email or web address] Completed 05/22/2020 Appointment: Bridget Wallace [facility]Ptel[facility] [phone] [facility] [facility] 03/16/2020 Visit Diagnosis Plan: Thoracic back pain Discussion: D aily stretches Moist heat Topical muscle rub Flexeril to use prn prior to chiropractic appointment ICD-9 : 724.1 ICD-10 : M54.6 03/14/2020 Visit Diagnosis Plan: Male erectile dysfunction Discus vean: Will start with testosterone level ICD-9 : [...] : R07.9 03/14/2020 Appointment: Bridget Wallace WPtel: [address] [place] [address] NEW PATIENT 03/14/2020 Patient Education: cyclobenzaprine- OptimizeRX Coupon [id number] [email or web address]/samplemd/resources/getResource/61/[email or web address] Completed 03/14/2020 Referral: Johnny Ramos WPtel: [phone] [facility] [address] [place] [address] Referral Appointment Requested Instructions No Instructions Medical Equipment No Medical Equipment data Health Concerns Section Health Concerns data not found Goals Section Goals data not found Interventions Section Interventions data not found Health Status Evaluations/Outcomes Section Health Status Evaluations/Outcomes data not found Advance Directives No Advance Directive data
--- OUTSIDE RECORDS SUMMARY | 2021-04-26 07:37 | XMS REPORT | CCD ---
Author Author Mina Wallace D.O. 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 [id number] Unknown Family History Family History data not found Social History Social History Element Codes Description Effective Dates Marital status Unknown 03/14/2020 Number of children Unknown 2 03/14/2020 Employment Unknown Currently employed Self 03/14/[address]: 21402997 Current every day smoker Number of years using tobacco Unknown 40 Number of cigarettes/day Unknown 40 (Two Packs) [address]: 801623 Currently drinks alcohol 03/14 Frequency of drinks SNOMED CT: 813095249 Drinks rarely 020 Has the patient ever [...] HFA 90 mcg/actuation aerosol inhaler RxNor m: 1971253 Take 2 Puff(s) Inhalation Q4H as needed 04/01/2021 No Stop Date Active sildenafil 100 mg tablet RxNorm: 264012 Take 1 Tablet(s) Oral Q D as needed 04/01/2021 No Stop Date Active omeprazole 40 mg capsule,delayed release RxNorm: 195789 1 Capsule(s) Oral QD for epigastric pain 05/22/2020 06/21/2020 Inactive Afrin (oxymetazoline) 0.05 % nasal mist RxNorm: 7697620 Nasal tw ice weekly 03/14/2020 No Stop Date Active cyclobenzaprine 5 mg tablet RxNorm: 050575 1 Tablet(s) Oral QD as needed for muscle spasm 03/14/2020 03/31/2021 Inactive Medication Administered No Medication Administered data Immunizations No Immunization data Results Observation Observation Code Item Item Code Result Date S [facility] Location GFR CALC 2019205 GFR Non Afr Amr >60 mL/min 03/16/2020 Un known GFR CALC [id number] GFR Afr Amr >60 mL/min 03/16/2020 Unknow n THYROID STIMULATING HORMONE 04091 TSH 1.280 uIU/mL 03/16/2020 Unknown COMPLETE BLOOD COUNT 4319538 WBC 9.3 10e9/L 03/16/20 20 Unknown COMPLETE BLOOD COUNT 2778200 RBC 4.80 10e12/L 2019 Unknown COMPLETE BLOOD COUNT 3165841 HEMOGLOBIN 14.9 g/dL 03/16/20 20 Unknown COMPLETE BLOOD COUNT 3818284 HEMATOCRIT 43.6 % 03/16/20 20 Unknown COMPLETE BLOOD COUNT 8107203 MCV 90.8 fL 0 Unknown COMPLETE BLOOD COUNT 8111607 MCH 31.0 pg 0 Unknown COMPLETE BLOOD COUNT 5247209 MCHC 34.2 g/dL 0 Unknown COMPLETE BLOOD COUNT 9494683 PLATELET COUNT 229 10e9/L Unknown COMPLETE BLOOD COUNT 4675621 Mean Plt Volume 9.1 fL Unknown COMPLETE BLOOD COUNT 3136708 Neut Auto 55.6 % 0 Unknown COMPLETE BLOOD COUNT 4836258 Lymph Auto 26.9 % 03/16/20 20 Unknown COMPLETE BLOOD COUNT 4497190 [place] Auto 12.6 % 0 Unknown COMPLETE BLOOD COUNT 5860686 RDW 12.6 % 0 Unknown COMPLETE BLOOD COUNT 9603912 Eos Auto 4.5 % 0 Unknown COMPLETE BLOOD COUNT 8046650 Baso Auto 0.4 % 0 Unknown COMPLETE BLOOD COUNT 3477221 Neutrophil Abs 5.17 10e9/L Unknown COMPLETE BLOOD COUNT 9535736 Lymphocyte Abs 2.50 10e9/L Unknown COMPLETE BLOOD COUNT 7400441 Monocyte Abs 1.17 10e9/L 02/17 Unknown COMPLETE BLOOD COUNT 9834960 Eosinophil Abs 0.42 10e9/L Unknown COMPLETE BLOOD COUNT 8301566 RDW-SD 41.3 fL 0 Unknown COMPLETE BLOOD COUNT 1435327 Basophil Abs 0.04 10e9/L 02/17 Unknown COMPREHENSIVE METABOLIC 24410 AST 22 U/L 2019 Unknown COMPREHENSIVE METABOLIC 98107 ALT 22 U/L 2019 Unknown COMPREHENSIVE METABOLIC 15415 BUN 10 mg/dL 2019 Unknown COMPREHENSIVE METABOLIC 81215 ALBUMIN 4.7 g/dL 2019 Unknown COMPREHENSIVE METABOLIC 17596 CHLORIDE 99 mmol/L 2019 Unknown COMPREHENSIVE METABOLIC 53094 Bili Total 0.4 mg/dL 03/16 Unknown COMPREHENSIVE METABOLIC 39311 ALK PHOS 78 U/L 2019 Unknown COMPREHENSIVE METABOLIC 93364 SODIUM 139 mmol/L 03/16 Unknown COMPREHENSIVE METABOLIC 25516 CREATININE 1.11 mg/dL 02/17 Unknown COMPREHENSIVE METABOLIC 98653 CALCIUM 9.3 mg/dL 2019 Unknown COMPREHENSIVE METABOLIC 78702 POTASSIUM 4.3 mmol/L 03/16 Unknown COMPREHENSIVE METABOLIC 42067 Total Protein 7.6 g/dL Unknown COMPREHENSIVE METABOLIC 07455 Glucose 81 mg/dL 2019 Unknown COMPREHENSIVE METABOLIC 52785 Bicarbonate 30 mmol/L 02/17 Unknown COMPREHENSIVE METABOLIC 59132 AGAP 10 mmol/L 2019 Unknown FREE T4 69009 T4 Free 0.99 ng/dL 03/16/2020 Unknown LIPID GROUP 27919 Cholesterol 175 mg/dL 03/16/2020 Unkno wn LIPID GROUP 63739 Triglyceride 128 mg/dL 03/16/2020 Unkn own LIPID GROUP 13842 HDL CHOLESTEROL 41 mg/dL 03/16/2020 U nknown LIPID GROUP 01102 Chol/HDL Ratio 4.27 ratio 03/16/2020 U nknown LIPID GROUP 13182 NON-HDL Chol 134 mg/dL 03/16/2020 Unkn own LIPID GROUP 75962 LDL Cholesterol 108 mg/dL 03/16/2020 U nknown PSA EQUIMOLAR PORSHA 90986 PSA Total 0.52 ng/mL 0 Unknown Procedures Procedure Codes Date ROUTINE VENIPUNCTURE CPT-4: 47898 03/16/2020 ASSAY OF FREE THYROXINE CPT-4: 73471 03/16/2020 ASSAY THYROID STIM HORMONE CPT-4: 65028 03/16/2020 COMPREHEN METABOLIC PANEL CPT-4: 24064 03/16/2020 COMPLETE CBC W/AUTO DIFF WBC CPT-4: 64063 03/16/2020 LIPID PANEL CPT-4: 61890 03/16/2020 ASSAY OF PSA TOTAL CPT-4: 15378 03/16/2020 Vital Signs Date Vital 04/01/2021 Blood Pressure 1: 140/84 Code: 8480-6 Heart Rate 1: 76 bpm Respiratory Rate: 20 bpm SpO2: 96% Temperature: 36.6 (C) / 97.8 (F) We ight: 154 lbs Code: 88908-5 03/14/2020 Blood Pressure 1: 120/78 Code: 8480-6 BMI: 22.2 Code: 69237-5 Heart Rate 1: 72 bpm Height: 5'9" Code: 8302-2 Respiratory Rate: 20 bpm SpO2: 100% Temperature: 36.2 (C) / 97.1 (F) Weight: 150 lbs Code: 97335-4 Functional Status No Functional Status data Reason For Visit Reason For Visit Effective Dates Notes dyspnea 04/01/2021 cough 05/22/2020 Patient tested negat genevieve for COVID last week by oral sample ~generic 03/14/2020 New Patient---establ ishing visit Encounters Encounter Performer Location Codes Date (45232) OFFICE/OUTPATIENT VISIT EST Diagnosis: Chest pain[ICD10: R07.9] Diagnosis: Dyspnea[ICD10: R06.00] Diagnosis: Tobacco abuse[ICD10: Z72.0] Diagnosis: GERD (gastroesophageal reflux disease)[ICD10: K21.9] Diagnosis: Erectile dysfunction[ICD10: N52.9] Bridget GENAO [employer] [facility] [employer] CPT-4: 06848 04/01/2021 ([id number]) OFFICE/OUTPATIENT VISIT EST Diagnosis: Chest pain[ICD10: R07.9] Diagnosis: GERD (gastroesophageal reflux disease)[ICD10: K21.9] Bridget GILL [employer] [facility] [employer] CPT-4: 52741 05/22/2020 (08235) NURSE/OUTPATIENT VISIT EST Diagnosis: Male erectile dysfunction[ICD10: N52.9] Diagnosis: Encounter for general adult medical examination without abnormal findings[ICD10: Z00.00] Bridget ROUSSEAUQUELINE [employer] CPT-4: 31729 03/16/2020 (78125) OFFICE/OUTPATIENT VISIT NEW Diagnosis: Chest pain[ICD10: R07.9] Diagnosis: Thoracic back pain[ICD10: M54.6] Diagnosis: Tobacco abuse[ICD10: Z72.0] Diagnosis: Dyspnea[ICD10: R06.00] Diagnosis: Male erectile dysfunction[ICD10: N52.9] Bridget Nathanielseema SOHAM LUQUEJUAN M [employer] [facility] [employer] CPT-4: 07729 03/14/2020 Plan of Care Planned Activity Notes [...] Care Plan: Referral Order SNOMED-CT : 30 1719137 Pending 04/01/2021 Visit Diagnosis Plan: Chest pain [...] K21.9 05/22/2020 [facility] [phone] [id number] [facility] 05/22/2020 Patient Education: omeprazole- [employer] Coupon [phone] [email or web address] Completed 05/22/2020 Appointment: [facility] [phone] [facility] [facility] 03/16/2020 Visit Diagnosis Plan: [...] : R07.9 03/14/2020 Appointment: Bridget Wallace WPtel: [address] [place] [address] NEW PATIENT 03/14/2020 Patient Education: cyclobenzaprine- [employer] Coupon [id number] [email or web address] Completed 03/14/2020 Referral: Johnny Ramos WPtel: [phone] [facility] [address] [place] [address] Referral Appointment Requested Instructions No Instructions Medical Equipment No Medical Equipment data Health Concerns Section Health Concerns data not found Goals Section Goals data not found Interventions Section Interventions data not found Health Status Evaluations/Outcomes Section Health Status Evaluations/Outcomes data not found Advance Directives No Advance Directive data
[2021-04-26] MEDS ORDERED: LACTATED RINGERS 1,000 ML IV ONE (07:42)
--- NOTE | 2021-04-26 08:01 | Pre-Op Note & Conscious Sedat ---
Pre-Operative Progress Note H&P Reviewed The H&P was reviewed, patient examined and no changes noted. Date H&P Reviewed: Apr 26, 2021 Time H&P Reviewed: 08:00 Conscious Sedation Pre-Proced ASA Score 2 �For ASA 3 and 4: Consider anesthesia and medical clearance.� Also, for patients with a history of failed moderate sedation consider anesthesia.� Airway Lungs Heart ASA score ASA 1: a normal healthy patient ASA 2: a patient with a mild systemic disease (mid diabetes, controlled hypertension, obesity ASA 3: a patient with a severe systemic disease that limits activity (angina, COPD, prior Myocardial infarction) ASA 4: a patient with an incapacitating disease that is a constant threat to life (CHF, renal failure) ASA 5: a moribund patient not expected to survive 24 hrs. (ruptured aneurysm) ASA 6: a declared brain- patient whose organs are being harvested. For emergent operations, add the letter E after the classification Mallampati Classification Grade 1 Sedation Plan Analgesia, Amnesia, Plan communicated to team members, Discussed options with patient/fam, Discussed risks with patient/fam The patient is an appropriate candidate to undergo the planned procedure, sedation, and anesthesia. The patient immediately re-assessed prior to indication. GERARDO OLIVER MD Apr 26, 2021 08:01
[2021-04-26 08:03] VITALS: BP 114/77
[2021-04-26] MEDS ORDERED: LACTATED RINGERS 1,000 ML IV STA (08:04)
[2021-04-26] MEDS ORDERED: LIDOCAINE JELLY 2% 6 ML SYRINGE MM PRN (08:15)
[2021-04-26] MEDS ORDERED: PROPOFOL INJECTION 50 ML IV ONE (08:26)
[2021-04-26] MEDS ORDERED: GLYCOPYRROLATE 0.2 MG/ML (ROBINUL) 2 ML VIAL ONE (08:57)
[2021-04-26 09:10] VITALS: BP 100/63
[2021-04-26 09:14] VITALS: BP 95/63
[2021-04-26 09:17] VITALS: BP 95/63
--- NOTE | 2021-04-26 09:38 | Anesthesia-General Post-Op ---
MAC Patient Condition Mental Status/LOC: Same as Preop Cardiovascular: Satisfactory Nausea/Vomiting: Absent Respiratory: Satisfactory Pain: Controlled Complications: Absent Post Op Complications Complications None Follow Up Care/Instructions Patient Instructions None needed. Anesthesiology Discharge Order Discharge Order Patient is doing well, no complaints, stable vital signs, no apparent adverse anesthesia problems. No complications reported per nursing. ARI HERBERT CRNA Apr 26, 2021 09:38
[2021-04-26 09:43] VITALS: BP 104/62
--- NOTE | 2021-04-26 14:06 | OPERATIVE REPORT ---
DATE OF SERVICE: PANENDOSCOPY SUMMARY INDICATION FOR THE PROCEDURE: Right upper quadrant abdominal pain with bloating, family history for pancreatic cancer in addition to rectal bleeding. The patient was placed in the left lateral decubitus position. The endoscope was inserted in the oral cavity and under direct visualization, esophagus was intubated. Endoscope was passed down the esophagus, stomach and second portion of the duodenum. Careful inspection was made as the endoscope was withdrawn. FINDINGS: Present in the posterior hypopharynx oriented towards the right with a benign-appearing submucosal nodule measuring approximately 1 cm in size. There was no evidence for secondary airway obstruction. The epiglottis, arytenoid aperture, true and false vocal folds were unremarkable. Photograph was obtained of the submucosal appearing nodule. The proximal, mid and distal esophagus were unremarkable. There was no evidence for hiatal hernia formation. No evidence to suggest Servin's change or erosive esophagitis. The cardia and fundus were unremarkable. Mild antral erythema was noted, patchy in nature. No evidence for erosions or ulceration were noted. A biopsy was obtained from the antrum for evaluation of histopathology and Helicobacter. The pylorus, the pyloric channel, the duodenal bulb and second portion of duodenum were unremarkable. ASSESSMENT: 1. Benign appearing approximately 1 cm submucosal nodule was noted in the hypopharynx. There was minimal erythema involving the antrum. A biopsy was obtained for histopathology and Helicobacter evaluation. This was an otherwise unremarkable EGD evaluation. We then proceeded with colonoscopy. Prior to undergoing colonoscopy, digital rectal evaluation was performed. The patient has prominent perianal skin folds, but no evidence for internal or external hemorrhoids. Digital evaluation of the prostate was unremarkable as was the anal canal and distal rectal vault. The colonoscope was then inserted into the rectum and under direct visualization advanced to cecum. The cecum was identified by identification of the ileocecal valve and cecal strap. Quality of prep was fair. FINDINGS: There was no evidence for internal or external hemorrhoids and the rectum was unremarkable. The sigmoid colon, descending colon, splenic flexure and transverse colon were unremarkable. A sessile adenomatous appearing polyp measuring 5 x 8 mm in size was noted at the hepatic flexure was photographed and biopsied and ablated with no subsequent blood loss. A similar appearing polyp was noted in the mid ascending colon, which was also biopsied and ablated with no subsequent blood loss after photographic documentation. The remainder of the ascending colon and cecum were unremarkable. ASSESSMENT: 2. Sessile subcentimeter adenomatous appearing polyps were ablated today, one from the hepatic flexure, the other one from the mid ascending colon. As long as there are no surprise on histopathology report, would advocate consideration for repeat surveillance colonoscopy in 5 years. Further recommendations pending biopsy evaluation. No other significant abnormalities noted on today's colonoscopy with unremarkable digital evaluation of the prostate as well. I thank you for the referral of this pleasant gentleman. Job ID: [id number] DocumentID: [id number] Dictated Date: 04/26/2021 09:10:06 Behavior Therapist Date: 04/26/2021 14:05:18 Dictated By: GERARDO OLIVER MD
--- NOTE | 2021-05-14 11:19 | Physician Query Clarification ---
PQ-Further Specificity Admission/Discharge Admission Date: 04/26/21 Discharge Date: The medical record reflects the following clinical scenario: FINDINGS: There was no evidence for internal or external hemorrhoids and the rectum was unremarkable. The sigmoid colon, descending colon, splenic flexure and transverse colon were unremarkable. A sessile adenomatous appearing polyp measuring 5 x 8 mm in size was noted at the hepatic flexure was photographed and biopsied and ablated with no subsequent blood loss. A similar appearing polyp was noted in the mid ascending colon, which was also biopsied and ablated with no subsequent blood loss after photographic documentation. The remainder of the ascending colon and cecum were unremarkable. ASSESSMENT: 2. Sessile subcentimeter adenomatous appearing polyps were ablated today, one from the hepatic flexure, the other one from the mid ascending colon. As long as there are no surprise on histopathology report, would advocate consideration for repeat surveillance colonoscopy in 5 years. Further recommendations pending biopsy evaluation. No other significant abnormalities noted on today's colonoscopy with unremarkable digital evaluation of the prostate as well. Question: Can you further specify how polyps were removed? Please document a response in the Progress Notes or Discharge Summary. 1. Hot biopsy followed by ablation 2. Snare removal followed by ablation 3. Cold biopsy followed by ablation 4. Other, please specify PHYSICIAN RESPONSE Can you specify per above: 1 Please remember a lack of response to the above will prompt a phone page by CDI/Coding staff. In responding to this query, please exercise your independent professional j udgment. The purpose of this communication is to more accurately reflect the complexity of your patient�s condition. The fact that a question is asked does not imply that any particular answer is desired or expected. Thank you for your timely response to this clarification. Requestor�s name: Tatianna THIS PHYSICIAN QUERY FORM IS A PERMANENT PART OF THE MEDICAL RECORD TATIANNA HELM May 14, 2021 11:19 GERARDO OLIVER MD May 15, 2021 16:34
== END 2021-04-26 09:45 | disposition home or self-care (01) ==
LOC: ENDO 07:34
PROVIDERS: ATTEND Internal Medicine
DX: D12.2 Benign neoplasm of ascending colon (principal); D12.3 Benign neoplasm of transverse colon; K63.89 Other specified diseases of intestine; J39.2 Other diseases of pharynx; Z80.0 Family history of malignant neoplasm of digestive organs; J44.9 Chronic obstructive pulmonary disease, unspecified; F17.210 Nicotine dependence, cigarettes, uncomplicated
CPT/HCPCS: 88305

== ENCOUNTER → 2021-12-02 | Outpatient (CLI) | payer OTHER ==
--- NOTE | 2021-12-02 12:41 | Diagnostic Imaging Report ---
Indication: Fall with right wrist injury. Time of Exam: 12:25 PM 3 views of the right wrist were obtained. Distal radius and ulna are intact. There is a calcific density noted on the dorsum of the carpus on lateral view suggestive of a triquetral fracture. No other fractures are seen. Metacarpals are intact. Impression: Findings suggestive of a triquetral fracture. Dictated by: Dictated on workstation # [id number]
== END ==
LOC: RAD 12:10
PROVIDERS: ATTEND Family Medicine
DX: M25.531 Pain in right wrist (principal); W19.XXXA Unspecified fall, initial encounter
CPT/HCPCS: 73110

== ENCOUNTER → 2022-05-01 | Outpatient (CLI) | payer OTHER ==
[~2022-05-01] MED LIST changes: +ALBU8.5H6 IH; -RT-ALBUINH IH; +RT-ALBUTEROL SULF 2.5 MG/3 ML PRE-MIX VIAL INH ONE
== END ==
LOC: RT 14:15
PROVIDERS: ATTEND Family Medicine
DX: J44.9 Chronic obstructive pulmonary disease, unspecified (principal)
CPT/HCPCS: 94060; 94726; 94729